=== PATIENT | male | born 1950 | race Caucasian/White ===

== ENCOUNTER 2016-08-24 11:02 | Emergency (ER) | payer MEDICARE, BC ==
[~2016-08-24] VITALS: Ht 177.8 cm; Wt 81.8 kg
[~2016-08-24 11:02] MED LIST: COUMADIN 1010 MG/TAB PO; FERROUS SULFATE27 MG PO; IBUPROFEN 200200 MG PO; MVI PO
[2016-08-24 11:13] VITALS: BP 129/83; TEMP 97
[2016-08-24] MEDS ORDERED: COUMADIN 77.5 MG/TAB PO (11:18)
[2016-08-24] MEDS ORDERED: FERROUS SULFATE PO (11:19)
[2016-08-24 12:01] LABS: HEMATOCRIT 43.6 % (42.0-52.0); HEMOGLOBIN 14.7 g/dl (13.5-18.0); MEAN CELL VOLUME 92 fl (80.0-100.0); MEAN CORPUSCULAR HEMOGLOBIN 31 pg (27.0-31.0); MEAN CORPUSCULAR HGB CONC 34 g/dl (33.0-37.0); MEAN PLATELET VOLUME 9.3 fl (7.4-10.4); PLATELET COUNT 196 K/mm3 (130-400); RED BLOOD COUNT 4.73 M/mm3 (4.20-5.60); REDCELL DISTRIBUTION WIDTH-CV 13.8 % (11.5-14.5)
[2016-08-24 12:04] LABS: ADD PATHOLOGY DIFF REVIEW NO; INR 2.2 (0.8-3.0); PROTHROMBIN TIME 25.3 SECONDS (9.7-12.8)
[2016-08-24 12:13] LABS: BAND 4 % (0-10); EOSINOPHIL 2 % (0-4); NEUTROPHILS 68 % (42.0-75.2); PLATELET ESTIMATE NORMAL (NORMAL); TOTAL CELLS COUNTED 100
[2016-08-24 12:54] VITALS: PULSE 72
== END 2016-08-24 12:54 | disposition home or self-care (01) ==
LOC: COL.ER 11:02
PROVIDERS: Emergency Medicine
DX: R51 Headache (principal); Z86.711 Personal history of pulmonary embolism; Z79.01 Long term (current) use of anticoagulants; S00.91XA Abrasion of unspecified part of head, initial encounter; W22.01XA Walked into wall, initial encounter; Y92.009 Unspecified place in unspecified non-institutional (private) residence as the place of occurrence of the external cause

== ENCOUNTER 2017-12-06 14:57 | Emergency (ER) | payer MEDICARE, BC ==
[~2017-12-06] VITALS: Ht 180.3 cm; Wt 89.4 kg
[~2017-12-06 14:57] MED LIST changes: +COUMADIN 77.5 MG/TAB PO; +FERROUS SULFATE PO
[2017-12-06 15:00] VITALS: BP 130/80; PULSE 76; TEMP 98.2
[2017-12-06] MEDS ORDERED: CLARITIN 1010 MG/TAB PO (15:26)
[2017-12-06] MEDS ORDERED: FLONASEALLERGY NS (15:26)
[2017-12-06 16:02] LABS: BASO % 0.7 % (0.0-2.0); EOS # 0.2 (0.0-0.7); EOS % 4.4 % (0-4.0); GRAN # 2.3 (1.4-6.5); GRAN % 54.8 % (42.2-75.2); HEMATOCRIT 40.4 % (42.0-52.0); HEMOGLOBIN 13.8 g/dl (13.5-18.0); INR 2.1 (0.8-3.0); LYMPH # 1.2 (1.2-3.4); LYMPH % 29.9 % (20.0-51.0); MEAN CELL VOLUME 91 fl (80.0-100.0); MEAN CORPUSCULAR HEMOGLOBIN 31 pg (27.0-31.0); MEAN CORPUSCULAR HGB CONC 34 g/dl (33.0-37.0); MEAN PLATELET VOLUME 9.4 fl (7.4-10.4); MONO # 0.4 (0.1-0.6); PLATELET COUNT 186 K/mm3 (130-400); PROTHROMBIN TIME 24.1 SECONDS (9.7-12.8); RED BLOOD COUNT 4.43 M/mm3 (4.20-5.60); REDCELL DISTRIBUTION WIDTH-CV 13.7 % (11.5-14.5)
[2017-12-06 16:08] LABS: CREATININE, serum 1.04 mg/dL (0.66-1.25)
== END 2017-12-06 17:01 | disposition home or self-care (01) ==
LOC: COL.ER 14:57
PROVIDERS: Physician Assistant
DX: S09.90XA Unspecified injury of head, initial encounter (principal); S00.01XA Abrasion of scalp, initial encounter; I48.91 Unspecified atrial fibrillation; I10 Essential (primary) hypertension; Z79.01 Long term (current) use of anticoagulants; Z79.51 Long term (current) use of inhaled steroids; W22.8XXA Striking against or struck by other objects, initial encounter; Y92.009 Unspecified place in unspecified non-institutional (private) residence as the place of occurrence of the external cause

== ENCOUNTER 2023-12-19 08:30 | Day surgery (SDC) | payer MEDICARE, BC ==
[~2023-12-19] VITALS: Ht 177.8 cm; Wt 88.4 kg
[~2023-12-19 08:30] MED LIST changes: +CLARITIN 1010 MG/TAB PO; +FLONASEALLERGY NS; +LR 1,000 ML IV SCH
--- NOTE | 2023-12-19 08:56 | NUR ---
PATIENT ADMITTED TO ROOM 1 AMBULATORY ACCOMPANIED BY SPOUSE. ALERT AND ORIENTED X3. VOICES UNDERSTANDING OF SURGERY AND CONSENTS SIGNED. PATIENT NOTED TO BE ON COUMADIN. STATES LAST TOOK A DOSE ON Friday12/15/2023 IN THE EVENING. ORDER FOR PT/INR WAS OBTAINED AND DRAWN. PATIENT AWAITS SURGERY.
[2023-12-19 09:18] VITALS: BP 114/70; PULSE 61; TEMP 97.7
[2023-12-19 10:01] LABS: INR 1.1 (0.8-3.0)
--- NOTE | 2023-12-19 10:55 | NUR ---
PATIENT WAS TAKEN TO PACU PER CART BY AMADOU CANTU SILK SPOOLER TO HAVE PRE-OP BLOCK PLACED.
[2023-12-19] MEDS ORDERED: Midazolam 2 MG/2 ML VIAL ONE (10:56)
[2023-12-19] MEDS ORDERED: Lidocaine PF 2% (20 MG/ML) 5 ML VIAL ONE ×2 (10:56→10:59)
[2023-12-19] MEDS ORDERED: fentaNYL 50 MCG/ML 2 ML VIAL ONE (10:56)
[2023-12-19] MEDS ORDERED: IRON TABLETS325 MG PO (10:58)
[2023-12-19] MEDS ORDERED: CLARITIN-D 10 M1 T24 PO (10:59)
[2023-12-19] MEDS ORDERED: ANTIVERT 25MG25 MG PO (11:00)
[2023-12-19] MEDS ORDERED: TOPROL XL 25MG25 MG PO (11:00)
[2023-12-19] MEDS ORDERED: COUMADIN 1010 MG/TAB PO (11:01)
[2023-12-19] MEDS ORDERED: PHENERGAN 25 TA25 MG PO (11:01)
[2023-12-19] MEDS ORDERED: dexAMETHasone 10 MG/ML VIAL ONE (11:33)
[2023-12-19] MEDS ORDERED: Ondansetron 4 MG/2 ML VIAL ONE (11:33)
[2023-12-19] MEDS ORDERED: fentaNYL 50 MCG/ML 1 ML SYRINGE/VIAL [PACU/SDC ONLY] IV PRN (12:00)
[2023-12-19] MEDS ORDERED: Meperidine 50 MG/ML 1 ML VIAL IV PRN (12:00)
[2023-12-19] MEDS ORDERED: Morphine 2 MG/1 ML VIAL [PACU/SDC ONLY] IV PRN (12:00)
[2023-12-19] MEDS ORDERED: Ondansetron 4 MG/2 ML VIAL IV PRN (12:00)
[2023-12-19] MEDS ORDERED: NORCO 325 MG-51 TAB PO (12:39)
[2023-12-19 13:20] VITALS: BP 136/77; PULSE 57; TEMP 96.8
[2023-12-19 13:30] VITALS: BP 139/82; PULSE 56
[2023-12-19 13:45] VITALS: BP 147/87; PULSE 58
[2023-12-19 14:00] VITALS: BP 135/81; PULSE 63
--- NOTE | 2023-12-19 14:20 | NUR ---
1405: DISCHARGE TEACHING COMPLETED WITH PRINTED EDUCATION AND INSTRUCTIONS SENT HOME WITH PATIENT. FOLLOW UP APPOINTMENT DATE, TIME AND LOCATION COMMUNICATED TO PATIENT AND SPOUSE. BOTH VERBALIZED UNDERSTANDING. 1410: PATIENT AMBULATED TO RESTROOM WITH STEADY GAIT AND VOIDED WITHOUT DIFFICULTY. 1415: PATIENT DENIES PAIN, NAUSEA AND SHORTNESS OF BREATH. TOLERATING FOOD AND DRINK. GROIN DRESSINGS CLEAN, DRY AND INTACT. SCROTAL SUPPORT IN PLACE. IV REMOVED. GAUZE AND COBAN PLACED OVER SITE. 1420: PATIENT DISCHARGED HOME WITH [facility].
--- NOTE | 2023-12-19 14:24 | NUR ---
PATIENT RETURNED TO ROOM 1 VIA CART, ALERT AND ORIENTED X3. DENIES PAIN, NAUSEA AND SHORTNESS OF BREATH. BREATHING REGULAR AND UNLABORED ON ROOM AIR. SKIN WARM AND DRY. NURSE HANDOFF COMPLETED IN ROOM. SEE CHART FOR VITAL SIGNS. VISIBLE ISLAND DRESSINGS TO LEFT GROIN. DRESSINGS CLEAN, DRY AND INTACT. SCROTAL SUPPORT IN PLACE. PATIENT HAS NO COMPLAINTS. SPOUSE, DEN, PRESENT IN ROOM. PATIENT HAD APPLE JUICE, SALTINES AND PEANUT BUTTER. FOOD AND DRINK TOLERATED WELL. CALL LIGHT IN REACH.
== END 2023-12-19 14:20 | disposition home or self-care (01) ==
LOC: SDCO 08:30
PROVIDERS: Nurse Anesthetist, Certified Registered
DX: K40.91 Unilateral inguinal hernia, without obstruction or gangrene, recurrent (principal); Z86.711 Personal history of pulmonary embolism; Z79.01 Long term (current) use of anticoagulants
CPT/HCPCS: C1781; J0665; J0690; J1100; J2250; J2405; J2704; J3010; J7120

== ENCOUNTER 2024-01-03 21:31 | Emergency (ER) | payer MEDICARE, BC ==
[~2024-01-03] VITALS: Ht 177.8 cm; Wt 81.8 kg
[~2024-01-03 21:31] MED LIST changes: +ANTIVERT 25MG25 MG PO; +CLARITIN-D 10 M1 T24 PO; +IRON TABLETS325 MG PO; -LR 1,000 ML IV SCH; +NORCO 325 MG-51 TAB PO; +PHENERGAN 25 TA25 MG PO; +TOPROL XL 25MG25 MG PO
[2024-01-03 21:37] VITALS: TEMP 97.8
[2024-01-03] MEDS ORDERED: Cephalexin 500 MG CAP PO ONE (22:15)
[2024-01-03] MEDS ORDERED: CEPHALEXIN500 M1 PO (22:21)
[2024-01-03 22:35] VITALS: BP 132/85; PULSE 71
== END 2024-01-03 22:35 | disposition home or self-care (01) ==
LOC: COL.ER 21:31
DX: L03.311 Cellulitis of abdominal wall (principal)